=== PATIENT | male | born 1955 | race Caucasian/White ===

== ENCOUNTER → 2019-06-21 08:28 | Outpatient (BNVA) | payer MEDICARE, SELFPAY | PROVIDERS: Family Provider Family Medicine; PCP Family Medicine; Visit Provider Family Medicine | DX: I10 Essential (primary) hypertension (principal); E78.5 Hyperlipidemia, unspecified; E11.9 Type 2 diabetes mellitus without complications; Z12.5 Encounter for screening for malignant neoplasm of prostate | CPT/HCPCS: 80053; 80061; 83036; 84153; 85025 ==

== ENCOUNTER → 2019-07-05 10:53 | Outpatient (BNVA) | payer MEDICARE, SELFPAY | PROVIDERS: Family Provider Family Medicine; PCP Family Medicine; Visit Provider Family Medicine | DX: L72.3 Sebaceous cyst (principal) | CPT/HCPCS: 88304 ==

== ENCOUNTER → 2019-09-27 11:29 | Outpatient (BNVA) | payer MEDICARE, SELFPAY | PROVIDERS: Family Provider Family Medicine; PCP Family Medicine; Visit Provider Family Medicine | DX: R79.89 Other specified abnormal findings of blood chemistry (principal); E78.5 Hyperlipidemia, unspecified | CPT/HCPCS: 80053; 80061 ==

== ENCOUNTER 2019-12-19 09:33 | Outpatient (CLI) | payer MEDICARE, SELFPAY ==
[2019-12-19 10:11] LABS: Basophils % 0.2 %; Eosinophils # 0.1 10^3/uL (0.0-0.8); Hematocrit 45.6 % (42.0-52.0); Hemoglobin 14.8 g/dL (11.7-16.6); Lymphocytes # 2.1 10^3/uL (0.8-4.8); Lymphocytes % 22.6 %; Mean Corpuscular HGB Conc 32.5 g/dL (30.0-36.0); Mean Corpuscular Hemoglobin 29.4 pg (28.0-34.0); Mean Corpuscular Volume 90.5 fL (80-94); Mean Platelet Volume 12.4 fL (7.4-10.4); Monocytes # 0.6 10^3/uL (0.2-0.9); Monocytes % 6.6 %; Neutrophils # 6.27 10^3/uL (1.8-7.7); Neutrophils % 69.3 %; Nucleated Red Blood Cells % 0 %; Platelet Count 207 10^3/cmm (130-400); Red Blood Count 5.04 10^6/uL (4.1-5.3); Red Cell Distribution Width 12.1 % (12.1-15.1); White Blood Count 9.1 10^3/uL (4.0-10.0)
[2019-12-19 10:22] LABS: Albumin Level 4.8 g/dL (3.5-5.2); Anion Gap 13.9 (5-19); Blood Urea Nitrogen 25 mg/dL (8-23); Calcium 9.5 mg/dL (8.5-10.5); Carbon Dioxide 27 mmol/L (22-29); Chloride 101 mmol/L (98-107); Chol HDL Ratio 4.74 mg/dL (1.0-5.00); Cholesterol 180 mg/dL (0-200); Glomerular Filtration Rate 46.8 mL/min (90-130); Glucose 145 mg/dL (65-115); HDL Cholesterol 38 mg/dL (60-100); LDL Cholesterol Calculated 108 mg/dL (50-129); LDL HDL Ratio 2.84 RATIO (0.00-3.22); Phosphorus 2.1 mg/dL (2.5-4.5); Potassium 3.9 mmol/L (3.5-5.1); Sodium 138 mmol/L (136-145); Triglycerides 172 mg/dL (0-150)
[2019-12-19 10:40] LABS: Estmated Average Glucose 209; Hemoglobin A1C 8.9 % (4.0-6.0)
[2019-12-19 15:15] LABS: Creatinine Urine, Random 44 mg/dL (39-259); Microalbumin Random Urine 5 ug/dL (0-20)
[2019-12-19 15:21] LABS: Microalbum Creatinine Ratio Ur 114 mg/dL (0-20)
[2019-12-20 09:10] LABS: PROTEIN, TOTAL 7.3 g/dL (6.1-8.1)
[2019-12-20 13:00] LABS: ALBUMIN 4.2 g/dL (3.8-4.8); ALPHA 1 GLOBULIN 0.3 g/dL (0.2-0.3); ALPHA 2 GLOBULIN 0.8 g/dL (0.5-0.9); BETA 1 GLOBULIN 0.5 g/dL (0.4-0.6); BETA 2 GLOBULIN 0.5 g/dL (0.2-0.5)
[2019-12-20 15:00] LABS: KAPPA LIGHT CHAIN, FREE, SERUM 17.1 mg/L (3.3-19.4); LAMBDA LIGHT CHAIN, FREE, SERU 14.3 mg/L (5.7-26.3)
== END 2019-12-19 09:34 | disposition home or self-care (01) ==
LOC: LAB 09:37
PROVIDERS: Family Provider Family Medicine; PCP Family Medicine; Visit Provider Family Medicine
DX: E11.9 Type 2 diabetes mellitus without complications (principal); E78.5 Hyperlipidemia, unspecified
CPT/HCPCS: 80061; 80069; 82044; 83036; 83883; 84155; 84165; 85025

== ENCOUNTER 2020-01-02 13:59 | Outpatient (CLI) | payer MEDICARE, SELFPAY ==
--- NOTE | 2020-01-02 14:09 | US_ITS ---
WS: [id number] ULTRASOUND RENAL TECHNIQUE: Ultrasound examination of both kidneys. CLINICAL INFORMATION: CHRONIC KIDNEY DZ/STAGE III COMPARISON: None. FINDINGS: RIGHT: Right kidney is normal in size and appearance. Echogenicity: Normal. Cortical thickness: 1.8 cm; Normal. Hydronephrosis: None. Perinephric fluid: None. Right kidney measures: 11.9 cm x 5.5 cm x 4.8 cm. LEFT: Left kidney is normal in size and appearance. Echogenicity: Normal. Cortical thickness: 1.5 cm; Normal. Hydronephrosis: None. Perinephric fluid: None. Left kidney measures: 13.5 cm x 5.5 cm x 5.5 cm. Normal visualized aorta. US/US renal BI* [id number] IMPRESSION: Normal renal ultrasound
== END 2020-01-02 14:00 | disposition home or self-care (01) ==
LOC: RAD 14:04
PROVIDERS: PCP Family Medicine; Visit Provider Registered Nurse
DX: N18.3 Chronic kidney disease, stage 3 (moderate) (principal)
CPT/HCPCS: 76770

== ENCOUNTER 2020-03-11 11:17 | Outpatient (CLI) | payer MEDICARE, SELFPAY | END 2020-03-11 11:18 | disposition home or self-care (01) | LOC: LAB 11:22 | PROVIDERS: PCP Family Medicine; Visit Provider Registered Nurse | DX: N18.30 Chronic kidney disease, stage 3 unspecified (principal) | CPT/HCPCS: 36415; 85025 ==

== ENCOUNTER 2020-03-17 10:11 | Outpatient (CLI) | payer MEDICARE, SELFPAY ==
[2020-03-17 11:00] LABS: Basophils % 0.3 %; Eosinophils # 0.3 10^3/uL (0.0-0.8); Hematocrit 45.9 % (42.0-52.0); Hemoglobin 14.6 g/dL (11.7-16.6); Lymphocytes # 2.4 10^3/uL (0.8-4.8); Lymphocytes % 24.5 %; Mean Corpuscular HGB Conc 31.8 g/dL (30.0-36.0); Mean Corpuscular Hemoglobin 29.5 pg (28.0-34.0); Mean Corpuscular Volume 92.7 fL (80-94); Monocytes # 0.7 10^3/uL (0.2-0.9); Monocytes % 7.2 %; Neutrophils % 64.6 %; Nucleated Red Blood Cells % 0 %; Platelet Count 262 10^3/cmm (130-400); Red Blood Count 4.95 10^6/uL (4.1-5.3); Red Cell Distribution Width 12.3 % (12.1-15.1); White Blood Count 9.8 10^3/uL (4.0-10.0)
[2020-03-17 11:29] LABS: Urine Creatinine 32 mg/dL (39-259); Urine Protein Random 5 mg/dL
[2020-03-17 11:37] LABS: Calcium 9.8 mg/dL (8.5-10.5)
[2020-03-17 11:39] LABS: UPRO/UCREAT Ratio 0.16 mg/mg CR
[2020-03-17 11:47] LABS: 25 Hydroxy Vitamin D 13 ng/mL (30-100); Albumin Level 4.7 g/dL (3.5-5.2); Blood Urea Nitrogen 20 mg/dL (8-23); Calcium 9.5 mg/dL (8.5-10.5); Carbon Dioxide 28 mmol/L (22-29); Chloride 99 mmol/L (98-107); Glomerular Filtration Rate 50.7 mL/min (90-130); Glucose 108 mg/dL (65-115); Phosphorus 2.8 mg/dL (2.5-4.5); Sodium 137 mmol/L (136-145)
[2020-03-17 14:43] LABS: Uric Acid 4.5 mg/dL (3.4-7.0)
== END 2020-03-17 10:12 | disposition home or self-care (01) ==
LOC: LAB 10:15
PROVIDERS: PCP Family Medicine; Visit Provider Registered Nurse
DX: N18.30 Chronic kidney disease, stage 3 unspecified (principal)
CPT/HCPCS: 36415; 80069; 82306; 82310; 82570; 83970; 84156; 84550; 85025

== ENCOUNTER → 2020-03-18 13:29 | Outpatient (BNVA) | payer MEDICARE, SELFPAY | PROVIDERS: PCP Family Medicine; Visit Provider Family Medicine | DX: E11.9 Type 2 diabetes mellitus without complications (principal) | CPT/HCPCS: 83036 ==

== ENCOUNTER → 2020-06-10 09:10 | Outpatient (BNVA) | payer MEDICARE, SELFPAY | PROVIDERS: PCP Family Medicine; Visit Provider Family Medicine | DX: E78.5 Hyperlipidemia, unspecified (principal); E11.9 Type 2 diabetes mellitus without complications; R19.7 Diarrhea, unspecified | CPT/HCPCS: 80053; 80061; 83036 ==

== ENCOUNTER → 2020-10-10 08:56 | Outpatient (BNVA) | payer MEDICARE, SELFPAY | PROVIDERS: PCP Family Medicine; Visit Provider Family Medicine | DX: E78.5 Hyperlipidemia, unspecified (principal); E11.9 Type 2 diabetes mellitus without complications; I10 Essential (primary) hypertension; H61.23 Impacted cerumen, bilateral | CPT/HCPCS: 80053; 80061; 82043; 83036 ==

== ENCOUNTER 2021-01-06 15:42 | Outpatient (CLI) | payer MEDICARE, SELFPAY | END 2021-01-06 15:43 | disposition home or self-care (01) | LOC: SPT 15:43 | PROVIDERS: PCP Family Medicine; Visit Provider Orthopaedic Surgery | DX: Z46.89 Encounter for fitting and adjustment of other specified devices (principal); S52.591D Other fractures of lower end of right radius, subsequent encounter for closed fracture with routine healing; X58.XXXD Exposure to other specified factors, subsequent encounter | CPT/HCPCS: 97760; L3982 ==

== ENCOUNTER → 2021-01-12 14:17 | Outpatient (BNVA) | payer MEDICARE, SELFPAY | PROVIDERS: PCP Family Medicine; Visit Provider Nurse Practitioner Family | DX: Z20.822 Contact with and (suspected) exposure to COVID-19 (principal) | CPT/HCPCS: 87635 ==

== ENCOUNTER → 2021-01-20 08:13 | Outpatient (BNVA) | payer MEDICARE, SELFPAY | PROVIDERS: PCP Family Medicine; Visit Provider Orthopaedic Surgery | DX: S52.501A Unspecified fracture of the lower end of right radius, initial encounter for closed fracture (principal); V29.9XXA Motorcycle rider (driver) (passenger) injured in unspecified traffic accident, initial encounter | CPT/HCPCS: 73110 ==

== ENCOUNTER 2021-03-09 13:16 | Outpatient (CLI) | payer MEDICARE, SELFPAY ==
[2021-03-09 13:49] LABS: Basophils % 0.2 %; Eosinophils # 0.1 10^3/uL (0.0-0.8); Eosinophils % 1.1 %; Hematocrit 43.9 % (42.0-52.0); Hemoglobin 14.2 g/dL (11.7-16.6); Lymphocytes # 1.7 10^3/uL (0.8-4.8); Lymphocytes % 20.2 %; Mean Corpuscular HGB Conc 32.3 g/dL (30.0-36.0); Mean Corpuscular Hemoglobin 29.2 pg (28.0-34.0); Mean Corpuscular Volume 90.3 fl (80-94); Mean Platelet Volume 11.7 fL (7.4-10.4); Monocytes # 0.7 10^3/uL (0.2-0.9); Monocytes % 8.6 %; Neutrophils # 5.71 10^3/uL (1.8-7.7); Neutrophils % 69.5 %; Nucleated Red Blood Cells % 0 %; Platelet Count 212 10^3/cmm (130-400); Red Blood Count 4.86 10^6/uL (4.1-5.3); Red Cell Distribution Width 12.7 % (12.1-15.1); White Blood Count 8.2 10^3/uL (4.0-10.0)
[2021-03-09 14:25] LABS: Creatinine Urine, Random 97 mg/dL (39-259); Microalbumin Random Urine 8 ug/dL (0-20)
[2021-03-09 14:27] LABS: Calcium 9.2 mg/dL (8.5-10.5)
[2021-03-09 14:27] LABS: Microalbum Creatinine Ratio Ur 82 mg/dL (0-20)
[2021-03-09 14:28] LABS: Albumin Level 4.2 g/dL (3.5-5.2); Anion Gap 15.7 (5-19); Blood Urea Nitrogen 20 mg/dL (8-23); Calcium 9.3 mg/dL (8.5-10.5); Carbon Dioxide 26 mmol/L (22-29); Chloride 100 mmol/L (98-107); Glomerular Filtration Rate 55.1 mL/min (90-130); Glucose 153 mg/dL (65-115); Phosphorus 2.8 mg/dL (2.5-4.5); Potassium 3.7 mmol/L (3.5-5.1); Sodium 138 mmol/L (136-145)
[2021-03-09 14:35] LABS: Parathyroid Hormone 24.5 pg/mL (15-65)
[2021-03-09 14:45] LABS: 25 Hydroxy Vitamin D 30 ng/mL (30-100)
== END 2021-03-09 13:17 | disposition home or self-care (01) ==
PROVIDERS: PCP Family Medicine; Visit Provider Registered Nurse
DX: N18.31 Chronic kidney disease, stage 3a (principal)
CPT/HCPCS: 36415; 80069; 82044; 82306; 82310; 83970; 85025

== ENCOUNTER → 2021-04-10 08:21 | Outpatient (BNVA) | payer MEDICARE, SELFPAY | PROVIDERS: PCP Family Medicine; Visit Provider Family Medicine | DX: E11.9 Type 2 diabetes mellitus without complications (principal) | CPT/HCPCS: 83036 ==

== ENCOUNTER → 2021-09-15 11:20 | Outpatient (BNVA) | payer MEDICARE, SELFPAY | PROVIDERS: PCP Family Medicine; Visit Provider Family Medicine Adult Medicine | DX: E11.9 Type 2 diabetes mellitus without complications (principal); I10 Essential (primary) hypertension; E78.5 Hyperlipidemia, unspecified; Z13.6 Encounter for screening for cardiovascular disorders | CPT/HCPCS: 80053; 80061; 83036 ==

== ENCOUNTER 2022-01-20 08:51 | Outpatient (CLI) | payer MEDICARE, SELFPAY ==
--- NOTE | 2022-01-20 09:05 | XR_ITS ---
WS: [id number] Exam: XR cervical spine 3V* [id number] Date/Time of Exam: 01/20/2022 9:05 AM Reason For Exam: M54.12 - Radiculopathy, cervical region No fracture or dislocation. Disc spaces are relatively well maintained. Slight spondylosis. The odont oid is intact. Normal paraspinal soft tissues. Right carotid calcifications. XR/XR cervical spine 3V* [id number] IMPRESSION: 1. No fracture or malalignment identified.
== END 2022-01-20 08:52 | disposition home or self-care (01) ==
PROVIDERS: PCP Family Medicine; Visit Provider Emergency Medicine
DX: M54.12 Radiculopathy, cervical region (principal)
CPT/HCPCS: 72040

== ENCOUNTER → 2022-02-04 15:07 | Outpatient (BNVA) | payer MEDICARE, SELFPAY | PROVIDERS: PCP Family Medicine; Visit Provider Family Medicine | DX: M54.12 Radiculopathy, cervical region (principal); R30.0 Dysuria; E11.9 Type 2 diabetes mellitus without complications | CPT/HCPCS: 81000 ==

== ENCOUNTER 2022-02-15 06:00 | Outpatient (RCR) | payer MEDICARE, SELFPAY | END 2022-02-19 23:59 | disposition home or self-care (01) | LOC: MPT 06:00 | PROVIDERS: PCP Family Medicine; Visit Provider Family Medicine | DX: M54.12 Radiculopathy, cervical region (principal) | CPT/HCPCS: 97110; 97140; 97162 ==

== ENCOUNTER 2022-02-20 06:00 | Outpatient (RCR) | payer MEDICARE, SELFPAY | END 2022-03-22 23:59 | disposition home or self-care (01) | LOC: MPT 06:00 | PROVIDERS: PCP Family Medicine; Visit Provider Family Medicine | DX: M54.12 Radiculopathy, cervical region (principal) | CPT/HCPCS: 97110; 97140; G0283 ==

== ENCOUNTER → 2022-03-04 09:33 | Outpatient (BNVA) | payer MEDICARE, SELFPAY | PROVIDERS: PCP Family Medicine; Visit Provider Family Medicine | DX: I10 Essential (primary) hypertension (principal); E78.5 Hyperlipidemia, unspecified; E11.9 Type 2 diabetes mellitus without complications; Z23 Encounter for immunization | CPT/HCPCS: 80053; 80061; 82043; 83036; 85025 ==

== ENCOUNTER → 2022-03-11 10:06 | Outpatient (BNVA) | payer MEDICARE, SELFPAY | PROVIDERS: PCP Family Medicine; Visit Provider Internal Medicine Nephrology | DX: N18.31 Chronic kidney disease, stage 3a (principal) | CPT/HCPCS: 80069; 82043; 82310; 82652; 83970; 85025 ==

== ENCOUNTER 2022-04-09 09:44 | Outpatient (CLI) | payer MEDICARE, SELFPAY ==
--- NOTE | 2022-04-09 10:15 | MR_ITS ---
WS: [id number] MRI CERVICAL SPINE NONCONTRAST HISTORY: chronic cervical radiculopathy COMPARISON: None available. Technique: Multiplanar, multisequence noncontrast imaging of the cervical spine. Normal cervical alignment with no compression fracture or significant disc space narrowing. Mild diff use disc space desiccation. Signal within the cervical cord is normal. Visualized posterior fossa is unremarkable. Craniocervical junction, C1 and C2 relationship, odontoid process and soft tissues are normal. C2-C3: Normal. C3-C4: Normal. C4-C5: Very mild osteophytic ridging and facet joint arthritis. Mild bilateral foraminal narrowing pr edominantly due to osteophyte disease. C5-C6: Mild annular disc bulging and mild osteophytosis. Mild LEFT foraminal narrowing due to osteoph yte disease. Mild facet joint arthritis. C6-C7: Mild annular disc bulge with a central disc protrusion. Small LEFT disc osteophyte complex. Mi ld to moderate LEFT foraminal stenosis and mild on the RIGHT. Mild facet arthritis. C7-T1: Normal. Paraspinal soft tissue are normal. MR/MR cervical spin wo con* [id number] IMPRESSION: 1. No high-grade central or foraminal stenosis. 2. Mild to moderate LEFT foraminal stenosis at C6-7 due to disc osteophyte dis ease. 3. Additional small central disc protrusion at C6-7 and mild RIGHT foraminal s tenosis. 4. Mild bilateral foraminal stenosis at C4-5 due to osteophyte disease. 5. Mild LEFT foraminal stenosis at C5-6.
== END 2022-04-09 09:45 | disposition home or self-care (01) ==
PROVIDERS: PCP Family Medicine; Visit Provider Family Medicine
DX: M54.12 Radiculopathy, cervical region (principal); M48.02 Spinal stenosis, cervical region; M25.78 Osteophyte, vertebrae; M50.223 Other cervical disc displacement at C6-C7 level
CPT/HCPCS: 72141

== ENCOUNTER → 2022-06-01 08:47 | Outpatient (BNVA) | payer MEDICARE, SELFPAY | PROVIDERS: PCP Family Medicine; Visit Provider Family Medicine | DX: E11.9 Type 2 diabetes mellitus without complications (principal); E78.5 Hyperlipidemia, unspecified | CPT/HCPCS: 80053; 80061; 83036 ==

== ENCOUNTER → 2022-06-24 11:04 | Outpatient (BNVA) | payer MEDICARE, SELFPAY | PROVIDERS: PCP Family Medicine; Visit Provider Anesthesiology Pain Medicine | DX: M54.2 Cervicalgia (principal); M79.602 Pain in left arm | CPT/HCPCS: 99204 ==

== ENCOUNTER → 2022-08-24 10:44 | Outpatient (BNVA) | payer MEDICARE, SELFPAY | PROVIDERS: PCP Family Medicine; Visit Provider Family Medicine | DX: E11.22 Type 2 diabetes mellitus with diabetic chronic kidney disease (principal); N18.31 Chronic kidney disease, stage 3a; Z79.4 Long term (current) use of insulin | CPT/HCPCS: 80048; 83036 ==

== ENCOUNTER → 2022-12-09 13:17 | Outpatient (BNVA) | payer MEDICARE, SELFPAY | PROVIDERS: PCP Family Medicine; Visit Provider Family Medicine | DX: E11.22 Type 2 diabetes mellitus with diabetic chronic kidney disease (principal); N18.31 Chronic kidney disease, stage 3a; Z79.4 Long term (current) use of insulin | CPT/HCPCS: 80053; 83036 ==

== ENCOUNTER → 2023-03-01 11:16 | Outpatient (BNVA) | payer MEDICARE, SELFPAY | PROVIDERS: PCP Family Medicine; Visit Provider Family Medicine | DX: E11.22 Type 2 diabetes mellitus with diabetic chronic kidney disease (principal); N18.30 Chronic kidney disease, stage 3 unspecified; R30.0 Dysuria | CPT/HCPCS: 80069; 82043; 82306; 82542; 85025 ==

== ENCOUNTER → 2023-03-07 09:41 | Outpatient (BNVA) | payer MEDICARE, SELFPAY | PROVIDERS: PCP Family Medicine; Visit Provider Family Medicine | DX: E11.22 Type 2 diabetes mellitus with diabetic chronic kidney disease (principal); N18.31 Chronic kidney disease, stage 3a; Z79.4 Long term (current) use of insulin; Z12.5 Encounter for screening for malignant neoplasm of prostate; N18.30 Chronic kidney disease, stage 3 unspecified | CPT/HCPCS: 82310; 83036; 83970; G0103 ==

== ENCOUNTER → 2023-06-21 09:13 | Outpatient (BNVA) | payer MEDICARE, SELFPAY | PROVIDERS: PCP Family Medicine; Visit Provider Family Medicine | DX: E11.22 Type 2 diabetes mellitus with diabetic chronic kidney disease (principal); N18.31 Chronic kidney disease, stage 3a; Z79.4 Long term (current) use of insulin; I10 Essential (primary) hypertension; M10.9 Gout, unspecified; K21.9 Gastro-esophageal reflux disease without esophagitis | CPT/HCPCS: 80053; 80061; 83036 ==

== ENCOUNTER → 2023-08-18 09:34 | Outpatient (BNVA) | payer MEDICARE, SELFPAY | PROVIDERS: PCP Family Medicine; Referring Provider Family Medicine; Visit Provider Dermatology | DX: L82.0 Inflamed seborrheic keratosis (principal); L72.0 Epidermal cyst; L57.0 Actinic keratosis; L82.1 Other seborrheic keratosis; L91.8 Other hypertrophic disorders of the skin; L73.8 Other specified follicular disorders; D36.12 Benign neoplasm of peripheral nerves and autonomic nervous system, upper limb, including shoulder | CPT/HCPCS: 17000; 17110; 99203 ==

== ENCOUNTER → 2023-09-07 09:30 | Outpatient (BNVA) | payer MEDICARE, SELFPAY | PROVIDERS: PCP Family Medicine; Visit Provider Dermatology | DX: D48.5 Neoplasm of uncertain behavior of skin (principal) | CPT/HCPCS: 11403; 13101 ==

== ENCOUNTER → 2023-09-22 08:21 | Outpatient (BNVA) | payer MEDICARE, SELFPAY | PROVIDERS: PCP Family Medicine; Visit Provider Family Medicine | DX: E11.9 Type 2 diabetes mellitus without complications (principal); Z79.4 Long term (current) use of insulin; Z13.6 Encounter for screening for cardiovascular disorders | CPT/HCPCS: 80053; 83036 ==

== ENCOUNTER → 2023-12-29 08:20 | Outpatient (BNVA) | payer MEDICARE, SELFPAY | PROVIDERS: PCP Family Medicine; Visit Provider Family Medicine Adult Medicine | DX: Z79.4 Long term (current) use of insulin (principal); E11.22 Type 2 diabetes mellitus with diabetic chronic kidney disease; N18.31 Chronic kidney disease, stage 3a; I10 Essential (primary) hypertension; E78.5 Hyperlipidemia, unspecified | CPT/HCPCS: 80053; 80061; 84443; 85025 ==

== ENCOUNTER → 2024-01-12 13:06 | Outpatient (BNVA) | payer MEDICARE, SELFPAY | PROVIDERS: PCP Family Medicine; Visit Provider Orthopaedic Surgery | DX: M54.12 Radiculopathy, cervical region (principal); M54.2 Cervicalgia | CPT/HCPCS: 72050; 99204 ==

== ENCOUNTER → 2024-03-29 08:39 | Outpatient (BNVA) | payer MEDICARE, SELFPAY | PROVIDERS: PCP Family Medicine; Visit Provider Nurse Practitioner Family | DX: L57.0 Actinic keratosis (principal); L91.8 Other hypertrophic disorders of the skin; L82.1 Other seborrheic keratosis; D36.12 Benign neoplasm of peripheral nerves and autonomic nervous system, upper limb, including shoulder; L73.8 Other specified follicular disorders | CPT/HCPCS: 17000; 17110; 99213 ==

== ENCOUNTER → 2024-04-03 11:00 | Outpatient (BNVA) | payer MEDICARE, SELFPAY | PROVIDERS: PCP Family Medicine Adult Medicine | DX: E03.9 Hypothyroidism, unspecified; E11.22 Type 2 diabetes mellitus with diabetic chronic kidney disease; N18.30 Chronic kidney disease, stage 3 unspecified; Z79.4 Long term (current) use of insulin; E78.5 Hyperlipidemia, unspecified; K21.9 Gastro-esophageal reflux disease without esophagitis; I10 Essential (primary) hypertension; M1A.0790 Idiopathic chronic gout, unspecified ankle and foot, without tophus (tophi); M54.12 Radiculopathy, cervical region | CPT/HCPCS: 80053; 80061; 83036; 84443 ==

== ENCOUNTER → 2024-08-23 08:57 | Outpatient (BNVA) | payer MEDICARE, SELFPAY | PROVIDERS: PCP Family Medicine; Visit Provider Family Medicine | DX: E11.22 Type 2 diabetes mellitus with diabetic chronic kidney disease (principal); N18.30 Chronic kidney disease, stage 3 unspecified; Z79.4 Long term (current) use of insulin; E78.5 Hyperlipidemia, unspecified; E03.9 Hypothyroidism, unspecified; N40.0 Benign prostatic hyperplasia without lower urinary tract symptoms; E55.9 Vitamin D deficiency, unspecified; M54.12 Radiculopathy, cervical region; R60.0 Localized edema; I10 Essential (primary) hypertension; E66.01 Morbid (severe) obesity due to excess calories; Z68.42 Body mass index [BMI] 45.0-49.9, adult; K21.9 Gastro-esophageal reflux disease without esophagitis; N18.31 Chronic kidney disease, stage 3a; M1A.0790 Idiopathic chronic gout, unspecified ankle and foot, without tophus (tophi); G47.33 Obstructive sleep apnea (adult) (pediatric); Z12.5 Encounter for screening for malignant neoplasm of prostate; H61.20 Impacted cerumen, unspecified ear | CPT/HCPCS: 80053; 80061; 82306; 83036; 84153; 84439; 84443; 85025 ==

== ENCOUNTER 2024-11-18 08:25 | Inpatient (IN) | payer MEDICARE, SELFPAY ==
[2024-11-18] VITALS (10 sets, daily range): BP systolic 97–161; BP diastolic 60–89; PULSE 80–113; RESP 10–19; TEMP 37.2–38.6; O2SAT 90–98; BMI 43.2; BMI 43.4
--- OUTSIDE RECORDS SUMMARY | 2024-11-18 08:31 | XMS_ITS | Encounter Summary ---
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 No monoclonal gammopathy detected. Interpreted by: Taj Silva., Ph.D. PROTEIN TOTAL, SPE 7.10 6.10 - 7.80 g/dL INTERFACE SYSTEM ALBUMIN SPE 4.20 3.50 - 5.30 g/dL INTERFACE SYSTEM ALPHA 1 GLOBULIN SPE .24 0.11 - 0.31 INTERFACE SYSTEM ALPHA 2 GLOBULIN SPE 1.19(H) 0.58 - 1.16 g/dL INTERFACE SYSTEM BETA GLOBULIN .60 0.59 - 0.88 g/dL INTERFACE SYSTEM GAMMA GLOBULIN .89 0.50 - 1.35 g/dL INTERFACE SYSTEM ALBUMIN %, 59.2 57.4 - 65.5 % INTERFACE SYSTEM % ALPHA 1 GLOBULIN 3.4 1.8 - 3.8 % INTERFACE SYSTEM % ALPHA 2 GLOBULIN 16.8(H) 9.5 - 14.3 % INTERFACE SYSTEM % Beta Globulin 8.5(L) 9.1 - 10.9 % INTERFACE SYSTEM % GAMMA GLOBULIN 12.5 8.2 - 16.7 % INTERFACE SYSTEM ALBUMIN/GLOBULIN RATIO 1.45 g/dL INTERFACE SYSTEM 04/18/2006 12:1 6 PM CONDUIT REAMER OPERATOR us Attila Coronado MD CHEMISTRY ORDERABLES Final R esult INTERFACE SYSTEM Refer to clinic/hospital department documented in this encounter Visit Diagnoses Not on filedocumented in this encounter Care Teams Burglar Alarm Superintendent Relationship Specialty Start Date End Date Samaria Wallace DO PCP - General Family Practice 02/15/19 documented as of this encounter
--- OUTSIDE RECORDS SUMMARY | 2024-11-18 08:31 | XMS_ITS | Clinical Summary ---
Author Organization [facility] [place] Address [address] [address] Care Team Providers Care Examination Scorer Name Role Phone Samaria Wallace Primary Care Provider +1- [phone] Allergies No known active allergies Medications DOXYCYCLINE MONOHYDRATE 100 mg Oral Cap Take 100 mg by mouth every 12 hours. Active CHLORTHALIDONE 25 mg Oral Tab Take 25 mg by mouth daily. Active OMEPRAZOLE 20 mg Oral CpDR Take 20 mg by mouth daily. Active LIPITOR 20 mg Oral Tab Take 20 mg by mouth daily. Active BENICAR 40 mg Oral Tab Take 40 mg by mouth daily. Active cefdinir (OMNICEF) 300 mg Oral CapIndications:Ce llulitis and abscess of foot, except toes Take 1 Cap by mouth every 12 hours. 20 Cap 0 04/01/2008 Active indomethacin (INDOCIN) 50 mg Oral CapIndications:Ce llulitis and abscess of foot, except toes Take 1 Cap by mouth 3 times daily. 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 CLERK Gender Identity Not on file Sexual Orientation Not on file Last Filed Vital Signs Vital Sign Reading Time Taken Comments Blood Pressure 130/76 04/01/2008 11:07 AM SERVICE CLERK Pulse 84 03/29/2008 2:56 PM SERVICE CLERK Temperature 36.4 C (97.6 F) 04/01/2008 11:07 AM SERVICE CLERK Respiratory Rate 24 03/29/2008 2:56 PM SERVICE CLERK Oxygen Saturation - - Inhaled Oxygen Concentration - - Weight 101 kg (222 lb 9.6 oz) 04/04/2008 9:20 AM SERVICE CLERK Height 167.6 cm (5' 6 ) 04/04/2008 9:20 AM SERVICE CLERK Body Mass Index 35.93 04/04/2008 9:20 AM SERVICE CLERK Plan of Treatment Health Maintenance Due Date Last Done Comments DTAP/TDAP/TD VACCINES (1 - Tdap) 1972 COLORECTAL SCREENING 1998 Colorectal Cancer Screening 1998 FIT-DNA Q 3 years 1998 FIT/FOBT Q 1 year 1998 Flex Sig/CT Colonography Q 5 years 1998 PNEUMOCOCCAL VACCINE 50+ YEARS (1 of 1 - PCV) 05/05/20 03 ZOSTER VACCINE (1 of 2) 2003 INFLUENZA VACCINE (#1) 2023 RSV VACCINE (60+ or ) (1 - 1-dose 75+ series) 2028 Insurance PREFERRED [employer] [id number] HMO Care Teams Examination Scorer Relationship Specialty Start Date End Date Samaria Wallace DO PCP - General Family Practice 02/15/19
--- OUTSIDE RECORDS SUMMARY | 2024-11-18 08:31 | XMS_ITS | Clinical Summary ---
Author Organization [facility] Address [address] Ibanez: Epic Prelude ADT [place] [address] Care Team Providers Care Credit Balance Specialist Name Role Phone Samaria Wallace Primary Care Provider +1- [phone] Allergies No known active allergies Encounters Date Type Department Care Team Description 11/06/2024 External Device Data STL ABSTRACTION Provider, Abstract 11/01/2024 Telephone [facility] [place] [address] [place] [address] Provider, Abstract Medical Records (Requested A1C lab results from external provider for continuity of care/insurance quality measures- need results uploaded and resulted in chart.) 10/11/2024 External Device Data STL ABSTRACTION Provider, Abstract 10/11/2024 External Device Data [facility] ABSTRACTION Provider, Abstract 10/10/2024 External Device Data ST[facility] ABSTRACTION Provider, Abstract 10/10/2024 External Device Data ST[facility] ABSTRACTION Provider, Abstract 10/09/2024 External Device Data ST[facility] ABSTRACTION Provider, Abstract 09/04/2024 External Device Data STL ABSTRACTION Provider, Abstract from Last 3 Months Family History Medical History Relation Name Comments Lung Cancer Paternal Grandfather Relation Name Status Comments Paternal Grandfather Social History Tobacco Use Types Packs/Day Years Used Date Smoking Tobacco: Never Alcohol Use Standard Drinks/Week Comments Yes 5.8 (1 standard drink = 0.6 oz p ure alcohol) Sex and Gender Information Value Date Recorded Sex Assigned at Not on file 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 Gender Identity Not on file Sexual Orientation Not on file Plan of Treatment Health Maintenance Due Date Last Done Comments DIABETES ANNUAL FOOT EXAM 1971 DIABETES ANNUAL RETINAL EXAM 1971 DIABETES MICROALBUMIN ANNUAL SCREEN 1971 LDL CHOLESTEROL ANNUAL 1971 DTAP/TDAP/TD VACCINES (1 - Tdap) 1972 PNEUMOCOCCAL VACCINE 50+ YEARS (1 of 2 - PCV) 05/05/19 72 COLORECTAL SCREENING 1998 Colorectal Cancer Screening 1998 FIT-DNA Q 3 years 1998 FIT/FOBT Q 1 year 1998 Flex Sig/CT Colonography Q 5 years 1998 ZOSTER VACCINE (1 of 2) 2003 RSV VACCINE (60+ or ) (1 - Risk 60-74 years 1-dose series) 2013 INFLUENZA VACCINE (#1) 2023 DIABETES HBA1C Q 6 MONTHS 10/01/2024 04/03/2024 Procedures Procedure Name Priority Date/Time Associated Diagnosis Comments HEMOGLOBIN A1C Routine 04/03/2024 from Last 3 Months or Most Recently Relevant to Health Maintenance Results * (ABNORMAL) HEMOGLOBIN A1C (04/03/2024) ABSTRACTED HGB A1C 7.5 % Blood us Abstract Provider CHEMISTRY ORDERABLES Edited Re sult - Final from Last 3 Months or Most Recently Relevant to Health Maintenance Care Teams Credit Balance Specialist Relationship Specialty Start Date End Date Samaria Wallace DO PCP - General Family Practice 02/15/19
--- OUTSIDE RECORDS SUMMARY | 2024-11-18 08:31 | XMS_ITS | Encounter Summary ---
Author Organization [facility] Address [address] [place] [address] Care Team Providers Care Gas Mask Inspector Name Role Phone Samaria Wallace DO Primary Care Provider +1- [phone] Encounter Details Date Type Department Care Team (Latest Contact Info) Description 04/25/2006 Outpatient Historical [facility] [place] [address] [place] [phone] Attila Coronado MD [address] [place] [address] Hypercalcemia (Primary Dx); Unspecified Essential Hypertension Social History Tobacco Use Types Packs/Day Years Used Date Smoking Tobacco: Never Assessed Sex and Gender Information Value Date Recorded Sex Assigned at Not on file Legal Sex Male 5:[address] Gender Identity Not on file Sexual Orientation Not on file documented as of this encounter Plan of Treatment Not on file documented as of this encounter Visit Diagnoses Diagnosis Hypercalcemia- Primary Unspecified essential hypertension documented in this encounter Care Teams Gas Mask Inspector Relationship Specialty Start Date End Date Samaria Wallace DO PCP - General Family Practice 02/15/19 documented as of this encounter
--- NOTE | 2024-11-18 08:54 | CTR_ITS ---
PROCEDURE INFORMATION: Exam: CT Abdomen And Pelvis With Contrast Exam date and time: 11/18/2024 10:14 AM Age: 69 years old Clinical indication: Other: Dysuria; Abdominal pain; Localized; Left lower quadrant (llq); Additional info: Llq pain TECHNIQUE: Imaging protocol: Computed tomography of the abdomen and pelvis with contrast. Total images: 3 Radiation optimization: All CT scans at this facility use at least one of these dose optimization techniques: automated exposure control; mA and/or kV adjustment per patient size (includes targeted exams where dose is matched to clinical indication); or iterative reconstruction. Contrast material: OMNIPAQUE 350; Contrast volume: 100 ml; Contrast route: INTRAVENOUS (IV); COMPARISON: CR XR hip LT 2-3V wo/w pel* [id number] 05/02/2019 12:47 PM RADIATION DOSE METRICS: Total DLP (mGy-cm): 1371.89 FINDINGS: Lungs: Mild dependent atelectasis. Liver: Normal. No mass. Gallbladder and biliary ducts: Normal. No calcified stones. No ductal dilation. Pancreas: Normal. No ductal dilation. Spleen: Normal. No splenomegaly. Adrenal glands: Normal. No mass. Kidneys and ureters: No renal, ureteral, nor bladder calculi detected. Right-sided renal cortical scarring is noted. 2 cm incidental right renal cyst, requiring no further evaluation. Stomach and bowel: Colonic diverticulosis is present without diverticulitis. Appendix: No evidence of appendicitis. Intraperitoneal space: Unremarkable. No free air. No significant fluid collection. Vasculature: Unremarkable. No abdominal aortic aneurysm. Lymph nodes: Unremarkable. No enlarged lymph nodes. Urinary bladder: A Virk catheter within collapsed urinary bladder. Reproductive: Unremarkable as visualized. Bones/joints: Unremarkable. No acute fracture. Soft tissues: There is a fat containing left inguinal hernia. CT/CT abdomen pelvis w con* [id number] IMPRESSION: 1. No renal, ureteral, nor bladder calculi detected. 2. A Virk catheter within collapsed urinary bladder. 3. Colonic diverticulosis is present without diverticulitis.
--- NOTE | 2024-11-18 09:08 | ED_ITS ---
HPI - Male Genitourinary 2 General: Chief complaint: Urogenital-Male Stated complaint: Fever / urinary Time Seen by Provider: 11/18/24 08:30 Source: patient Mode of arrival: ambulatory Limitations: no limitations History of Present Illness: 69-year-old male states that he has had a fever along with a hard time urinating since yesterday. He states that he felt like he had gotten too hot due to the heat and has been feeling weak as well. He states he is really only able to dribble is having some lower abdominal pain he denies any vomiting or diarrhea. Associated symptoms: Reports dysuria; Deny nausea or vomiting Related Data Home Medications ?Medication ?Instructions ?Recorded ?Confirmed potassium chloride PO 06/24/22 11/16/24 Previous Rx's ?Medication ?Instructions ?Recorded albuterol sulfate 90 mcg/actuation 2 puff inhalation Q 6H PRN 09/02/22 aerosol inhaler shortness of breath or wheez ing #8.5 grams Freestyle Jami III [place] #1 ea 03/07/23 blood-glucose sensor (FreeStyle #1 ea 03/07/23 Jami 3 Sensor device) pen needles #100 ea 02/22/24 lancets 33 gauge (TRUEplus Lancets) #100 ea 02/27/24 omeprazole 20 mg capsule,delayed 20 mg PO QDAY #90 cap s 04/03/24 release Test Strips #1 ea 04/18/24 allopurinol 300 mg tablet 150 mg (1/2 x 300 mg) PO HAYDEN LY #45 05/29/24 tabs amlodipine 10 mg tablet 10 mg PO DAILY #90 tabs 0 12/14 losartan 100 1 tab PO DAILY #90 tabs 0 12/14 mg-hydrochlorothiazide 25 mg tablet rosuvastatin 40 mg tablet 40 mg PO DAILY #90 tabs 0 12/14 carbamide peroxide 6.5 % ear drops 5 drp otic (ear) Q1 2H 7 days #15 mL 08/23/24 (Debrox) celecoxib 200 mg capsule 200 mg PO BID PRN pain #60 c aps 08/23/24 gabapentin 100 mg capsule 100 mg PO TID #90 caps 08/23 cholecalciferol (vitamin D3) 1,250 50,000 unit PO .qwe ekly 12 weeks 08/24/24 mcg (50,000 unit) capsule #12 caps torsemide 20 mg tablet 40 mg (2 x 20 mg) PO DAILY # 10 tabs 09/05/24 fenofibrate nanocrystallized 145 145 mg PO QDAY 90 day s #90 tabs 09/12/24 mg tablet (Tricor) insulin glargine 100 unit/mL (3 30 unit (0.3 mL) SUBCU T BID #15 mL 11/16/24 mL) subcutaneous pen (Lantus Solostar U-100 Insulin) semaglutide 0.25 mg or 0.5 mg (2 1 mg (1.472 mL) SUBCU T .qweekly 3 11/16/24 mg/3 mL) subcutaneous pen injector months #3 mL (Ozempic) tramadol 50 mg tablet 50 mg PO Q12H PRN pain 30 da ys #30 11/16/24 tabs Allergies Allergy/AdvReac Type Severity Reaction Status Date / Time No Known Allergies Allergy Verified 11/16/24 13:38 Review of Systems 2 Const: Reports: fever(s); Denies: chills, body aches or change in appetite Eyes: Denies: blurry vision or eye discomfort ENMT: Denies: throat pain or dental pain Card: Denies: chest pain Resp: Denies: dyspnea GI: Reports: abdominal pain; Denies: nausea, vomiting or diarrhea : Reports: difficulty urinating and dysuria Musc: Denies: neck pain or back pain Skin/Breast: Denies: rash Neuro: Denies: headache(s) PFSH ED 2 PFSH: Medical History Adult BMI 40.0-44.9 kg/sq m Hypovitaminosis D Morbid obesity with BMI of 45.0-49.9, adult Hypothyroidism (acquired) 12/29/2023 TSH 5.3 Left anterior shoulder pain Closed fracture of right distal radius GERD (gastroesophageal reflux disease) JESSICA (obstructive sleep apnea) Benign essential HTN Dyslipidemia Gout Surgical History No pertinent past surgical history Family History Other Cancer Stroke Social History Smoking and tobacco/nicotine status: never used tobacco/nicotine Quit status (tobacco/nicotine): has quit using Second hand smoke exposure: No Alcohol intake: current Alcohol intake frequency: holidays/special occasions only Alcohol type: beer, wine and hard liquor Substance/Drug Use: never Physical Exam 2 Const: COMMON NORMALS: patient oriented x3 HENMT: COMMON NORMALS: normocephalic and atraumatic HEAD & SCALP: n ormocephalic and atraumatic Eye: COMMON NORMALS: conjunctivae normal CONJUNCTIVA: Yes conjunctivae normal Neck/C-Spine: COMMON NORMALS: full ROM and supple Chest: COMMONS NORMALS: normal inspection of the chest Resp: COMMON NORMALS: normal respiratory effort, No retractions, No use of accessory muscles and clear to auscultation bilaterally AUSCULTATION: clear to auscultation bilaterally Cardio: COMMON NORMALS: regular rate, regular rhythm and No murmurs present (Cardio) RATE: regular rate RHYTHM: regular rhythm GI: COMMON NORMALS: Normal to inspection, nondistended, normoactive bowel sounds present, Soft to palpation and no masses PALPATION: Yes Soft to palpation OTHER: Left lower quadrant tenderness Extremity: COMMON NORMALS: normal to inspection and full ROM Neuro: COMMON NORMALS: patient oriented x3, moves all extremities and no focal motor deficits Psych: COMMON NORMALS: mental status grossly normal, Normal thought process present and cooperative THOUGHT PROCESS: Normal thought process present Skin: COMMON NORMALS: no rashes or lesions noted and no wounds GENERAL SKIN EXAM: no rashes or lesions noted Course 2 Vital Signs: Vital signs: Vital Signs Temperature 99.2 F 11/18/24 11:09 Pulse Rate 104 H 11/18/24 12:34 Respiratory Rate 16 11/18/24 12:34 Blood Pressure 161/89 11/18/24 12:34 Pulse Oximetry 98 11/18/24 12:34 Oxygen Delivery Me thod Room Air 11/18/24 12:34 Oxygen Flow Rate 2 11/18/24 11:09 MDM - Male Medical Decision Making Patient presents here with UTI does have an elevated white count lactate here is normal is given blood cultures did give him sepsis fluid bolus at his ideal body weight. Will admit at this time. Medical Records I reviewed the patient's medical records. Lab Data I reviewed the patient's lab results. 11/18/24 09:22 11/18/24 09:22 Radiology Impressions Abdomen/Pelvis CT 11/18/24 08:54 IMPRESSION: 1. No renal, ureteral, nor bladder calculi detected. 2. A Virk catheter within collapsed urinary bladder. 3. Colonic diverticulosis is present without diverticulitis. Chest X-Ray 11/18/24 10:38 IMPRESSION: No acute findings. Laboratory Results WBC 18.77 10^3/uL (3.29-11.43) H 11/18/24 09:22 RBC 5.08 10^6/uL (3.85-5.65) 11/18/24 09:22 Hgb 15.10 g/dL (11.27-16.99) 11/18/24 09:22 Hct 44.6 % (37-53) 11/18/24 09:22 MCV 87.8 fl (82-101) 11/18/24 09:22 MCH 29.7 pg (27-33) 11/18/24 09:22 MCHC 33.9 g/dL (30-55) 11/18/24 09:22 RDW 12.5 % (12.1-15.1) 11/18/24 09:22 Plt Count 222 10^3/cmm (157-399) 11/18/24 09:22 MPV 13.1 fL (7.4-10.4) H 11/18/24 09:22 Neut % (Auto) 86.7 % 11/18/24 09:22 Lymph % (Auto) 5.7 % 11/18/24 09:22 [place] % (Auto) 7.1 % 11/18/24 09:22 Eos % (Auto) 0.0 % 11/18/24 09:22 Baso % (Auto) 0.1 % 11/18/24 09:22 Neut # (Auto) 16.27 10^3/uL (1.8-7.7) H 11/18/24 09:22 Lymph # (Auto) 1.1 10^3/uL (0.8-4.8) 11/18/24 09:22 [place] # (Auto) 1.3 10^3/uL (0.2-0.9) H 11/18/24 09:22 Eos # (Auto) 0.0 10^3/uL (0.0-0.8) 11/18/24 09:22 Baso # (Auto) 0.0 10^3/uL (0.0-0.1) 11/18/24 09:22 Nucleated RBC % (auto) 0 % 11/18/24 09:22 Nucleated RBCs # 0.0 /100WBC 11/18/24 09:22 Sodium 135 mmol/L (136-145) L 11/18/24 09:22 Potassium 3.5 mmol/L (3.5-5.1) 11/18/24 09:22 Chloride 95 mmol/L (98-107) L 11/18/24 09:22 Carbon Dioxide 25 mmol/L (22-29) 11/18/24 09:22 Anion Gap 18.5 (5-19) 11/18/24 09:22 BUN 15 mg/dL (8-23) 11/18/24 09:22 Creatinine 1.4 mg/dL (0.7-1.2) H 11/18/24 09:22 GFR Calculation Not Reportable 11/18/24 09:22 Glucose 145 mg/dL (65-115) H 11/18/24 09:22 Calculated Osmolality 283 mOsm/kg (285-295) L 11/18/24 09:22 Lactic Acid 1.2 mmol/L (0.5-2.2) 11/18/24 10:29 Calcium 9.9 mg/dL (8.5-10.5) 11/18/24 09:22 Total Bilirubin 1.0 mg/dL (0.15-1.2) 11/18/24 09:22 AST 16 U/L (0-40) 11/18/24 09:22 ALT 28 U/L (0-41) 11/18/24 09:22 Alkaline Phosphatase 51 U/L (40-130) 11/18/24 09:22 Total Protein 8.1 g/dL (6.6-8.7) 11/18/24 09:22 Albumin 4.5 g/dL (3.5-5.2) 11/18/24 09:22 Globulin 3.6 g/dL (1.3-4.6) 11/18/24 09:22 Lipase 20 U/L (13-60) 11/18/24 09:22 Urine Color Yellow (Yellow) 11/18/24 10:44 Urine Appearance Clear (CLEAR) 11/18/24 10:44 Urine pH 6.0 (5-7) 11/18/24 10:44 Ur Specific [place] 1.039 (1.005-1.030) H 11/18/24 10:44 Urine Protein 2+ (Negative) A 11/18/24 10:44 Urine Glucose (UA) Negative (Normal) 11/18/24 10:44 Urine Ketones Negative (Negative) 11/18/24 10:44 Urine Blood 2+ (Negative) A 11/18/24 10:44 Urine Nitrate Negative (Negative) 11/18/24 10:44 Urine Bilirubin Negative (Negative) 11/18/24 10:44 Urine Urobilinogen 1.0 mg/dL (Negative) 11/18/24 10:44 Ur Leukocyte Esterase 1+ (Negative) A 11/18/24 10:44 Urine RBC 21-50 /hpf (0-2) H 11/18/24 10:44 Urine WBC >100 /hpf (0-5) H 11/18/24 10:44 Ur Squamous Epith Cells 0-5 /hpf (0-5) 11/18/24 10:44 Amorphous Sediment Not Reportable 11/18/24 10:44 Urine Bacteria 1+ /hpf (NONE) H 11/18/24 10:44 Hyaline Casts 1.21 /lpf 11/18/24 10:44 All radiology interpretation(s) finalized by discharge Discharge Plan Discharge Condition: Stable Prescriptions: No Action (DME) pen needles See Rx Instructions .Route .MEDSUPPLY Qty: 100 3RF Rx Instructions: As directed omeprazole 20 mg capsule,delayed release(DR/EC) 20 mg PO QDAY Qty: 90 4RF amlodipine 10 mg tablet 10 mg PO DAILY Qty: 90 1RF rosuvastatin 40 mg tablet 40 mg PO DAILY Qty: 90 1RF allopurinol 300 mg tablet 150 mg PO DAILY Qty: 45 1RF losartan-hydrochlorothiazide 100-25 mg tablet 1 tab PO DAILY Qty: 90 1RF celecoxib 200 mg capsule 200 mg PO BID PRN (Reason: pain) Qty: 60 2RF gabapentin 100 mg capsule 100 mg PO TID Qty: 90 1RF Debrox 6.5 % drops 5 drp otic (ear) Q12H 7 Days Qty: 15 0RF cholecalciferol (vitamin D3) 1,250 mcg (50,000 unit) capsule 50,000 unit PO .qweekly 84 Days Qty: 12 0RF Ozempic 0.25 mg or 0.5 mg (2 mg/3 mL) pen injector 1 mg SUBCUT .qweekly 90 Days Qty: 3 2RF insulin glargine [Lantus Solostar U-100 Insulin] 100 unit/mL (3 mL) insulin pen 30 unit SUBCUT BID Qty: 15 5RF tramadol 50 mg tablet 50 mg PO Q12H PRN (Reason: pain) 30 Days Qty: 30 0RF potassium chloride PO albuterol sulfate 90 mcg/actuation HFA aerosol inhaler 2 puff inhalation Q6H PRN (Reason: shortness of breath or wheezing) Qty: 8.5 0RF (DME) Freestyle Jami III [place] See Rx Instructions .Route .MEDSUPPLY Qty: 1 0RF Rx Instructions: As directed (DME) FreeStyle Jami 3 Sensor Device See Rx Instructions .Route Qty: 1 6RF Rx Instructions: As directed torsemide 20 mg tablet 40 mg PO DAILY Qty: 10 0RF (DME) lancets [TRUEplus Lancets] 33 gauge misc See Rx Instructions .ROUTE .COMPLEX Qty: 100 11RF Dose Instruction: USE DIRECTED Rx Instructions: USE DIRECTED (DME) Test Strips See Rx Instructions .Route .MEDSUPPLY Qty: 1 0RF Rx Instructions: As directed fenofibrate nanocrystallized [Tricor] 145 mg tablet 145 mg PO QDAY 90 Days Qty: 90 1RF Referrals: Aleksander Morel MD [Primary Care Provider, Family Practice] Print Language: Thai Coding Level of Care Code ED Attending Psychiatrist for Mark Benitez
[2024-11-18 09:59] LABS: Hematocrit 44.6 % (37-53); Hemoglobin 15.10 g/dL (11.27-16.99); Mean Corpuscular HGB Conc 33.9 g/dL (30-55); Mean Corpuscular Hemoglobin 29.7 pg (27-33); Mean Corpuscular Volume 87.8 fl (82-101); Nucleated Red Blood Cells % 0 %; Platelet Count 222 10^3/cmm (157-399); Red Blood Count 5.08 10^6/uL (3.85-5.65); White Blood Count 18.77 10^3/uL (3.29-11.43)
[2024-11-18] MEDS: iohexol 350 mg/mL 500 mL Btl (per mL) IV (10:11)
[2024-11-18 10:14] LABS: Alanine Aminotransferase 28 U/L (0-41); Albumin Level 4.5 g/dL (3.5-5.2); Alkaline Phosphatase 51 U/L (40-130); Anion Gap 18.5 (5-19); Aspartate Amino Transferase 16 U/L (0-40); Blood Urea Nitrogen 15 mg/dL (8-23); Calcium 9.9 mg/dL (8.5-10.5); Carbon Dioxide 25 mmol/L (22-29); Chloride 95 mmol/L (98-107); Creatinine Clr Calc Pharmacy 61.4267; Globulin 3.6 g/dL (1.3-4.6); Glucose 145 mg/dL (65-115); Lipase 20 U/L (13-60); Osmolality Calculated 283 mOsm/kg (285-295); Potassium 3.5 mmol/L (3.5-5.1); Sodium 135 mmol/L (136-145); Total Protein 8.1 g/dL (6.6-8.7)
--- NOTE | 2024-11-18 10:38 | XRR_ITS ---
PROCEDURE INFORMATION: Exam: XR Chest Exam date and time: 11/18/2024 10:41 AM Age: 69 years old Clinical indication: Fever TECHNIQUE: Imaging protocol: Radiologic exam of the chest. Views: 1 view. Total images: 15 COMPARISON: CT abdomen pelvis w con* [id number] 11/18/2024 10:14 AM FINDINGS: Lungs: Unremarkable. No consolidation. Pleural spaces: Unremarkable. No pleural effusion. No pneumothorax. Heart/Mediastinum: Unremarkable. No cardiomegaly. Vasculature: Mild atherosclerotic disease burden is evident. Bones/joints: Unremarkable. XR/XR chest 1V portable [id number] IMPRESSION: No acute findings.
[2024-11-18] MEDS: piperacillin-tazobactam 3.375 GM in sodium chloride 0.9% (plus) 50 ML IV ×2 (10:39→17:25)
--- NOTE | 2024-11-18 10:43 | PC.NURSE ---
PATIENT PLACED ON 2 L NC DUE SLEEPING AND O2 SATURATION DECREASED TO 85%. PATIENT STATES WEARS CPAP AT NIGHT. DR COATS NOTIFIED.
[2024-11-18 11:07] LABS: Glucose Urine UA Negative (Normal); Nitrate Urine Negative (Negative)
[2024-11-18 11:08] LABS: Lactic Sepsis W/Reflex 1.2 mmol/L (0.5-2.2)
[2024-11-18] MEDS: VANCOMYCIN ADD-Vantage 1,000 MG in 0.9% NaCl ADD-Vantage 250 ML 250 MG IV (11:10)
[2024-11-18 11:11] LABS: Add Urine Microscopic? YES
[2024-11-18 11:16] LABS: Specific Gravity, Urine 1.039 (1.005-1.030)
--- NOTE | 2024-11-18 12:17 | PM.HP ---
Providers/Chief Complaint Primary Care Provider: Aleksander Morel MD Chief Complaint: Fever / urinary History of Present Illness Pako Ramirez is a 69 year old male with a past medical history of type 2 diabetes mellitus, hypertension, hyperlipidemia, who presents to [facility] due to weakness, fatigue, dysuria, increased urinary frequency, urinary hesitancy. Patient reports that recently he has been losing weight, he has been on Ozempic, going back to work, does report overnight increased urinary frequency, hesitancy, urgency, at times inability to urinate, reports that fevers, chills, no flank pain, no dysuria, no hematuria, no history of prostatomegaly, no history of BPH, he had a Virk catheter placed in the emergency room Review of Systems Const: Reports: fever(s) Card: Denies: chest pain Resp: Denies: dyspnea GI: Denies: abdominal pain Medications/Allergies Home Medications ?Medication ?Instructions ?Recorded ?Confirmed ?Last Taken ?Type potassium chloride PO 06/24/22 11/16/24 Unknown History albuterol sulfate 90 mcg/actuation 2 puff inhalation Q6H PRN 09/02/22 11/16/24 Unknown Rx aerosol inhaler shortness of breath or wheezing #8.5 grams Freestyle Jami III [place] #1 ea 03/07/23 11/16/24 Unknown Rx blood-glucose sensor (FreeStyle #1 ea 03/07/23 11/16/24 Unknown Rx Jami 3 Sensor device) pen needles #100 ea 02/22/24 11/16/24 Unknown Rx lancets 33 gauge (TRUEplus Lancets) #100 ea 02/27/24 11/16/24 Unknown Rx omeprazole 20 mg capsule,delayed 20 mg PO QDAY #90 caps 04/03/24 11/16/24 Unknown Rx release Test Strips #1 ea 04/18/24 11/16/24 Unknown Rx allopurinol 300 mg tablet 150 mg (1/2 x 300 mg) PO DAILY #45 05/29/24 11/16/24 Unknown Rx tabs amlodipine 10 mg tablet 10 mg PO DAILY #90 tabs 05/29/24 11/16/24 Unknown Rx losartan 100 1 tab PO DAILY #90 tabs 05/29/24 11/16/24 Unknown Rx mg-hydrochlorothiazide 25 mg tablet rosuvastatin 40 mg tablet 40 mg PO DAILY #90 tabs 05/29/24 11/16/24 Unknown Rx carbamide peroxide 6.5 % ear drops 5 drp otic (ear) Q12H 7 days #15 mL 08/23/24 11/16/24 Unknown Rx (Debrox) celecoxib 200 mg capsule 200 mg PO BID PRN pain #60 caps 08/23/24 11/16/24 Unknown Rx gabapentin 100 mg capsule 100 mg PO TID #90 caps 08/23/24 11/16/24 Unknown Rx cholecalciferol (vitamin D3) 1,250 50,000 unit PO .qweekly 12 weeks 08/24/24 11/16/24 Unknown Rx mcg (50,000 unit) capsule #12 caps torsemide 20 mg tablet 40 mg (2 x 20 mg) PO DAILY #10 tabs 09/05/24 11/16/24 Unknown Rx fenofibrate nanocrystallized 145 145 mg PO QDAY 90 days #90 tabs 09/12/24 11/16/24 Unknown Rx mg tablet (Tricor) insulin glargine 100 unit/mL (3 30 unit (0.3 mL) SUBCUT BID #15 mL 11/16/24 11/16/24 Unknown Rx mL) subcutaneous pen (Lantus Solostar U-100 Insulin) semaglutide 0.25 mg or 0.5 mg (2 1 mg (1.472 mL) SUBCUT .qweekly 3 11/16/24 11/16/24 Unknown Rx mg/3 mL) subcutaneous pen injector months #3 mL (Ozempic) tramadol 50 mg tablet 50 mg PO Q12H PRN pain 30 days #30 11/16/24 11/16/24 Unknown Rx tabs Allergies Allergy/AdvReac Type Severity Reaction Status Date / Time No Known Allergies Allergy Verified 11/16/24 13:38 PFSH Acute PFSH: Medical History Adult BMI 40.0-44.9 kg/sq m Hypovitaminosis D Morbid obesity with BMI of 45.0-49.9, adult Hypothyroidism (acquired) 12/29/2023 TSH 5.3 Left anterior shoulder pain Closed fracture of right distal radius GERD (gastroesophageal reflux disease) JESSICA (obstructive sleep apnea) Benign essential HTN Dyslipidemia Gout Surgical History No pertinent past surgical history Family History Other Cancer Stroke Social History Smoking and tobacco/nicotine status: never used tobacco/nicotine Quit status (tobacco/nicotine): has quit using Second hand smoke exposure: No Alcohol intake: current Alcohol intake frequency: holidays/special occasions only Alcohol type: beer, wine and hard liquor Substance/Drug Use: never Vitals/I&O/Wt Last Vital Signs Temp 99.2 F 11/18/24 11:09 Pulse 104 H 11/18/24 11:09 Resp 16 11/18/24 11:09 BP 116/70 11/18/24 11:09 Pulse Ox 94 11/18/24 11:09 O2 Del Method Nasal Cannula 11/18/24 11:09 O2 Flow Rate 2 11/18/24 11:09 11/17/24 11/18/24 11/18/24 22:59 06:59 14:59 Intake Total 1050 / 1050 Balance 1050 / 1050 Weight last 48 hrs Weight 125.191 kg Physical Exam Const: COMMON NORMALS: no acute distress and patient oriented x3 Eye: COMMON NORMALS: Equal, round and reactive pupils present Resp: COMMON NORMALS: normal respiratory effort, No retractions, No use of accessory muscles and clear to auscultation bilaterally AUSCULTATION: clear to auscultation bilaterally Cardio: COMMON NORMALS: no JVD, regular rate, regular rhythm, S1 normal heart sound present and S2 normal heart sound present RATE: regular rate RHYTHM: regular rhythm HEART SOUNDS: S1 normal heart sound present and S2 normal heart sound present GI: COMMON NORMALS: Normal to inspection, nondistended, normoactive bowel sounds present, Soft to palpation and non-tender Extremity: COMMON NORMALS: no pedal edema Neuro: COMMON NORMALS: patient oriented x3, CN's II-XII intact bilaterally and moves all extremities Psych: COMMON NORMALS: mental status grossly normal Data 11/18/24 09:22 11/18/24 09:22 Micro: Microbiology 11/18/24 10:31 Blood Culture - Preliminary Blood SPECIMEN COLLECTED 11/18/24 10:29 Blood Culture - Preliminary Blood SPECIMEN COLLECTED A&P Assessment and plan (1) UTI (urinary tract infection): (2) Sepsis: (3) Benign essential HTN: (4) Dyslipidemia: (5) DM II (diabetes mellitus, type II), controlled: (6) Hypothyroidism (acquired): (7) Morbid obesity with BMI of 45.0-49.9, adult: (8) Stage 3a chronic kidney disease (CKD): (9) JESSICA (obstructive sleep apnea): Plan Urinary tract infection - Urine culture - Blood cultures - Vancomycin - Zosyn -Status post sepsis bolus Type 2 diabetes mellitus - Lantus 5 units twice daily - Low-dose sliding scale Subclinical hypothyroidism Full code Lovenox for DVT prophylaxis PDMP PDMP Reviewed: Not Reviewed Attestations Medical Necessity Statement*: Patient requires hospitalization for urinary tract infection, sepsis, urinary retention, inpatient, greater than 2 midnights Diagnoses UTI (urinary tract infection) N39.0 Sepsis A41.9 Benign essential HTN I10 Dyslipidemia E78.5 Controlled type 2 diabetes mellitus with stage 3 chronic kidney disease, with long-term current use of insulin E11.22; N18.30; Z79.4 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 Diabetes mellitus complication status: with kidney complications Diabetes mellitus complication detail: with chronic kidney disease Chronic kidney disease stage: stage 3 (moderate) Hypothyroidism (acquired) E03.9 Morbid obesity with BMI of 45.0-49.9, adult E66.01; Z68.42 Stage 3a chronic kidney disease (CKD) N18.31 JESSICA (obstructive sleep apnea) G47.33 Sepsis Event Note Evaluation Current stage of sepsis: sepsis Possible source: genitourinary Focused Exam Vital Signs Temp Pulse Resp BP Pulse Ox O2 Del Method O2 Flow Rate 11/18/24 11:09 99.2 F 104 H 16 116/70 94 Nasal Cannula 2 11/18/24 10:42 104 H 16 116/74 92 Nasal Cannula 2 11/18/24 09:25 112 H 16 128/81 93 Room Air 11/18/24 08:42 101.4 F H 113 H 18 155/84 92 Room Air Respiratory exam: Absent respiratory distress Cardiovascular exam: Present S1 and S2 Capillary refill: < 3 Seconds Peripheral pulse strength: 2+ Slightly Diminished Peripheral pulse location: Radial Skin exam: normal turgor Date exam was performed: 11/18/24 Time exam was performed: 12:20
[2024-11-18 13:20] LABS: Free T4 Free Thyroxine 0.93 ng/dL (0.82-1.77)
[2024-11-18 13:22] LABS: NT Pro B Type Natriuretic Pept 86 pg/mL (0-125); Procalcitonin 0.19 ng/mL (0-0.5)
[2024-11-18 14:01] LABS: Thyroid Stimulating Hormone 2.33 uIU/mL (0.27-4.20)
[2024-11-18] MEDS: pantoprazole 40 mg SDV IVP (14:31)
--- NOTE | 2024-11-18 15:09 | PC.NURSE ---
DR SALTER CONTACTED IN REGARDS TO PATIENT VANC AND ZOSYN ORDERS. PROVIDER STATED TO CALL PHARMACY FOR RETIMES. NURSE CALLED PHARMACY, [facility], WHO RETIMED VANC AND ZOSYN TIMES.
--- NOTE | 2024-11-18 15:14 | PHA.VACGOAL ---
Vancomycin Goal - Goal Vancomycin Goal:: 15-20 mg/L Vancomycin Indication:: Other (UTI/SEPSIS) - Therapy Current therapy:: Pip/Tazo Day of therpy:: Day [1]of [] . Actual body weight (kg): 125.191 kg - Data Labs: WBC 18.77 10^3/uL (3.29-11.43) H 11/18/24 09:22 RBC 5.08 10^6/uL (3.85-5.65) 11/18/24 09:22 Hgb 15.10 g/dL (11.27-16.99) 11/18/24 09:22 Hct 44.6 % (37-53) 11/18/24 09:22 MCV 87.8 fl (82-101) 11/18/24 09:22 MCH 29.7 pg (27-33) 11/18/24 09:22 MCHC 33.9 g/dL (30-55) 11/18/24 09:22 RDW 12.5 % (12.1-15.1) 11/18/24 09:22 Sodium 135 mmol/L (136-145) L 11/18/24 09:22 Potassium 3.5 mmol/L (3.5-5.1) 11/18/24 09:22 Chloride 95 mmol/L (98-107) L 11/18/24 09:22 Carbon Dioxide 25 mmol/L (22-29) 11/18/24 09:22 Anion Gap 18.5 (5-19) 11/18/24 09:22 BUN 15 mg/dL (8-23) 11/18/24 09:22 Creatinine 1.4 mg/dL (0.7-1.2) H 11/18/24 09:22 GFR Calculation Not Reportable 11/18/24 09:22 Treatment plan:: new consult Regimen:: New start vancomycin for UTI/sepsis. No prior vancomycin history found. 1000 mg dose given in ER. Started on maintenance dose of 1500 mg q18h.
[2024-11-18] MEDS: insulin glargine 100 units/1 mL 5 UNIT SUBCUT (17:25)
[2024-11-19] VITALS: BP 122/72; PULSE 80; PULSE 96; RESP 10; RESP 17; TEMP 37.2; O2SAT 95; O2SAT 97
[2024-11-19] MEDS: piperacillin-tazobactam 3.375 GM in sodium chloride 0.9% (plus) 50 ML IV ×3 (01:14→17:30)
[2024-11-19 04:00] VITALS: BP 106/63; PULSE 79; PULSE 89; RESP 10; RESP 17; TEMP 36.7; O2SAT 93; O2SAT 98
[2024-11-19 06:18] LABS: Hematocrit 40.0 % (37-53); Hemoglobin 13.10 g/dL (11.27-16.99); Mean Corpuscular HGB Conc 32.8 g/dL (30-55); Mean Corpuscular Hemoglobin 29.0 pg (27-33); Mean Corpuscular Volume 88.5 fl (82-101); Nucleated Red Blood Cells % 0 %; Platelet Count 162 10^3/cmm (157-399); Red Blood Count 4.52 10^6/uL (3.85-5.65); White Blood Count 15.89 10^3/uL (3.29-11.43)
[2024-11-19 06:36] LABS: Anion Gap 17.6 (5-19); Blood Urea Nitrogen 17 mg/dL (8-23); Calcium 8.5 mg/dL (8.5-10.5); Carbon Dioxide 21 mmol/L (22-29); Chloride 105 mmol/L (98-107); Creatinine Clr Calc Pharmacy 57.6794; Glucose 129 mg/dL (65-115); Osmolality Calculated 293 mOsm/kg (285-295); Potassium 3.6 mmol/L (3.5-5.1); Sodium 140 mmol/L (136-145)
[2024-11-19 07:38] VITALS: BP 126/70; PULSE 88; RESP 16; TEMP 36.8; O2SAT 93
--- NOTE | 2024-11-19 08:08 | PC.SOCIAL ---
IMM Update Pg. 2 of IMM Updated and reviewed with patient, who verbalized understanding. Copy provided at bedside.
[2024-11-19] MEDS: insulin glargine 100 units/1 mL 5 UNIT SUBCUT ×2 (08:53→17:30)
[2024-11-19 11:14] VITALS: BP 119/60; PULSE 82; RESP 17; TEMP 37.1; O2SAT 90
[2024-11-19] MEDS: pantoprazole 40 mg SDV IVP (13:45)
[2024-11-19 15:34] VITALS: BP 124/70; PULSE 86; RESP 16; TEMP 36.9; O2SAT 95
--- NOTE | 2024-11-19 17:45 | PM.PN ---
Subjective Subjective: Patient was seen this morning, currently alert oriented x 3, following all commands, no fevers, chills, cough, Vitals/I&O/Wt Last Vital Signs Temp 98.4 F 11/19/24 15:34 Pulse 86 11/19/24 15:34 Resp 16 11/19/24 15:34 BP 124/70 11/19/24 15:34 Pulse Ox 95 11/19/24 15:34 O2 Del Method Room Air 11/19/24 15:34 O2 Flow Rate 2 11/18/24 14:36 FiO2 21 11/19/24 04:00 11/19/24 11/19/24 11/19/24 06:59 14:59 22:59 Intake Total 50 / 2700 950 / 950 Output Total 600 / 1500 750 / 750 Balance -550 / 1200 200 / 200 Weight last 48 hrs Weight 126.552 kg Weight 125.781 kg Weight 125.191 kg Physical Exam Const: COMMON NORMALS: no acute distress and patient oriented x3 Resp: COMMON NORMALS: normal respiratory effort, No retractions, No use of accessory muscles and clear to auscultation bilaterally AUSCULTATION: clear to auscultation bilaterally Cardio: COMMON NORMALS: regular rate, regular rhythm, S1 normal heart sound present and S2 normal heart sound present RATE: regular rate RHYTHM: regular rhythm HEART SOUNDS: S1 normal heart sound present and S2 normal heart sound present GI: COMMON NORMALS: Normal to inspection, nondistended, normoactive bowel sounds present and non-tender Extremity: COMMON NORMALS: no pedal edema Neuro: COMMON NORMALS: patient oriented x3 Psych: COMMON NORMALS: mental status grossly normal Data 11/19/24 05:15 11/19/24 05:15 Micro: Microbiology 11/18/24 10:44 Urine Culture - Preliminary Urine,Clean Catch Gram Negative Rods 11/18/24 10:31 Blood Culture - Preliminary Blood NEGATIVE TO DATE 11/18/24 10:29 Blood Culture - Preliminary Blood NEGATIVE TO DATE A&P Assessment and plan (1) UTI (urinary tract infection): (2) Sepsis: (3) Benign essential HTN: (4) Dyslipidemia: (5) DM II (diabetes mellitus, type II), controlled: (6) Hypothyroidism (acquired): (7) Morbid obesity with BMI of 45.0-49.9, adult: (8) Stage 3a chronic kidney disease (CKD): (9) JESSICA (obstructive sleep apnea): Plan Urinary tract infection CT/CT abdomen pelvis w con* [id number] IMPRESSION: 1. No renal, ureteral, nor bladder calculi detected. 2. A Virk catheter within collapsed urinary bladder. 3. Colonic diverticulosis is present without diverticulitis. - Urine culture showing gram-negative rods - Blood cultures - Vancomycin - Zosyn -Status post sepsis bolus Type 2 diabetes mellitus - Lantus 5 units twice daily - Low-dose sliding scale Subclinical hypothyroidism Full code Lovenox for DVT prophylaxis PDMP PDMP Reviewed: Not Reviewed Attestations Medical Necessity Statement*: Patient requires hospitalization for urinary retention, UTI, GOSIA Diagnoses UTI (urinary tract infection) N39.0 Sepsis A41.9 Benign essential HTN I10 Dyslipidemia E78.5 Controlled type 2 diabetes mellitus with stage 3 chronic kidney disease, with long-term current use of insulin E11.22; N18.30; Z79.4 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
[2024-11-19 19:32] VITALS: BP 143/79; PULSE 83; RESP 16; TEMP 37.2; O2SAT 94
[2024-11-20] VITALS (8 sets, daily range): BP systolic 104–146; BP diastolic 53–73; PULSE 71–90; RESP 16–20; TEMP 36.7; O2SAT 92–98
[2024-11-20] MEDS: piperacillin-tazobactam 3.375 GM in sodium chloride 0.9% (plus) 50 ML IV ×2 (00:41→07:39)
[2024-11-20 05:44] LABS: Hematocrit 38.5 % (37-53); Hemoglobin 12.90 g/dL (11.27-16.99); Mean Corpuscular HGB Conc 33.5 g/dL (30-55); Mean Corpuscular Hemoglobin 29.8 pg (27-33); Mean Corpuscular Volume 88.9 fl (82-101); Nucleated Red Blood Cells % 0 %; Platelet Count 162 10^3/cmm (157-399); Red Blood Count 4.33 10^6/uL (3.85-5.65); White Blood Count 10.20 10^3/uL (3.29-11.43)
[2024-11-20 06:07] LABS: Anion Gap 16.4 (5-19); Blood Urea Nitrogen 19 mg/dL (8-23); Calcium 8.6 mg/dL (8.5-10.5); Carbon Dioxide 23 mmol/L (22-29); Chloride 102 mmol/L (98-107); Creatinine Clr Calc Pharmacy 66.4196; Glucose 105 mg/dL (65-115); Osmolality Calculated 289 mOsm/kg (285-295); Potassium 3.4 mmol/L (3.5-5.1); Sodium 138 mmol/L (136-145)
[2024-11-20] MEDS: insulin glargine 100 units/1 mL 5 UNIT SUBCUT (07:39)
--- NOTE | 2024-11-20 11:43 | P.DS_ITS ---
Discharge Providers Date of Admission: 11/18/24 12:14 Date of Discharge: November 20, 2024 Attending Provider at Admission: Ruddy Torres MD Attending Provider at Discharge: Ruddy Torres MD Primary Care Provider: Aleksander Morel MD Diagnoses at Discharge Discharge Diagnosis (1) UTI (urinary tract infection): Status: Acute (2) Sepsis: Status: Acute (3) Benign essential HTN: Status: Chronic (4) Dyslipidemia: Status: Chronic (5) DM II (diabetes mellitus, type II), controlled: Status: Chronic (6) Hypothyroidism (acquired): Status: Chronic Permanent problem details: 12/29/2023 TSH 5.3 (7) Morbid obesity with BMI of 45.0-49.9, adult: Status: Acute (8) Stage 3a chronic kidney disease (CKD): Status: Acute (9) JESSICA (obstructive sleep apnea): Status: Acute Reason for Visit Reason for Visit: Fever / urinary Hospital Course Hospital Course Pako Ramirez is a 69 year old male with a past medical history of type 2 diabetes mellitus, hypertension, hyperlipidemia, who presents to [facility] due to weakness, fatigue, dysuria, increased urinary frequency, urinary hesitancy. Patient reports that recently he has been losing weight, he has been on Ozempic, going back to work, does report overnight increased urinary frequency, hesitancy, urgency, at times inability to urinate, reports that fevers, chills, no flank pain, no dysuria, no hematuria, no history of prostatomegaly, no history of BPH, he had a Land catheter placed in the emergency room Patient was admitted to [facility] for urinary tract infection, with sepsis secondary to urinary retention, BPH, received broad-spectrum antibiotic therapy, overall clinically improved with IV antibiotics, urine cultures growing E. coli, discharged on p.o. Levaquin for 6 remaining days For patient's urinary retention, likely secondary to BPH, he was discharged with Land catheter placed due to urinary retention. Follow-up with urology in [place] to [facility] for urodynamic testing and removal of Land catheter and 1 week. Patient was advised that if he develops any fevers, any chills, flank pain to me to go to the emergency room. For his type 2 diabetes mellitus, Lantus was decreased to 5 units twice daily, follow-up with primary care provider as outpatient Physical Exam Const: COMMON NORMALS: no acute distress and patient oriented x3 Resp: COMMON NORMALS: normal respiratory effort, No retractions, No use of accessory muscles and clear to auscultation bilaterally AUSCULTATION: clear to auscultation bilaterally Cardio: COMMON NORMALS: regular rate, regular rhythm, S1 normal heart sound present and S2 normal heart sound present RATE: regular rate RHYTHM: regular rhythm HEART SOUNDS: S1 normal heart sound present and S2 normal hea rt sound present GI: COMMON NORMALS: Normal to inspection, nondistended, normoactive bowel sounds present and non-tender Extremity: COMMON NORMALS: no pedal edema Neuro: COMMON NORMALS: patient oriented x3 Psych: COMMON NORMALS: mental status grossly normal Discharge Data Studies Completed and Pending Completed Studies During Hospitalization Category Date Time Status CT abdomen pelvis w con* [id number] Stat Cat Scan 11/18/24 08:54 Completed CXRP [XR chest 1V portable [id number]] Stat Exams 11/18/24 10:38 Completed Pending at discharge Category Date Time Status Basic Metabolic Panel AM LABS Lab 11/21/24 04:00 Ordered Blood Culture Stat Lab 11/18/24 10:31 Results Complete Blood Count w/Auto AM LABS Lab 11/21/24 04:00 Ordered Vancomycin Trough Timed Lab 11/20/24 19:00 Ordered Radiology Impressions Abdomen/Pelvis CT 11/18/24 08:54 IMPRESSION: 1. No renal, ureteral, nor bladder calculi detected. 2. A Land catheter within collapsed urinary bladder. 3. Colonic diverticulosis is present without diverticulitis. Chest X-Ray 11/18/24 10:38 IMPRESSION: No acute findings. Laboratory Results WBC 10.20 10^3/uL (3.29-11.43) 11/20/24 05:00 RBC 4.33 10^6/uL (3.85-5.65) 11/20/24 05:00 Hgb 12.90 g/dL (11.27-16.99) 11/20/24 05:00 Hct 38.5 % (37-53) 11/20/24 05:00 MCV 88.9 fl (82-101) 11/20/24 05:00 MCH 29.8 pg (27-33) 11/20/24 05:00 MCHC 33.5 g/dL (30-55) 11/20/24 05:00 RDW 12.7 % (12.1-15.1) 11/20/24 05:00 Plt Count 162 10^3/cmm (157-399) 11/20/24 05:00 MPV 12.6 fL (7.4-10.4) H 11/20/24 05:00 Neut % (Auto) 78.4 % 11/20/24 05:00 Lymph % (Auto) 10.3 % 11/20/24 05:00 [place] % (Auto) 10.0 % 11/20/24 05:00 Eos % (Auto) 0.7 % 11/20/24 05:00 Baso % (Auto) 0.2 % 11/20/24 05:00 Neut # (Auto) 8.00 10^3/uL (1.8-7.7) H 11/20/24 05:00 Lymph # (Auto) 1.1 10^3/uL (0.8-4.8) 11/20/24 05:00 [place] # (Auto) 1.0 10^3/uL (0.2-0.9) H 11/20/24 05:00 Eos # (Auto) 0.1 10^3/uL (0.0-0.8) 11/20/24 05:00 Baso # (Auto) 0.0 10^3/uL (0.0-0.1) 11/20/24 05:00 Nucleated RBC % (auto) 0 % 11/20/24 05:00 Nucleated RBCs # 0.0 /100WBC 11/20/24 05:00 Sodium 138 mmol/L (136-145) 11/20/24 05:00 Potassium 3.4 mmol/L (3.5-5.1) L 11/20/24 05:00 Chloride 102 mmol/L (98-107) 11/20/24 05:00 Carbon Dioxide 23 mmol/L (22-29) 11/20/24 05:00 Anion Gap 16.4 (5-19) 11/20/24 05:00 BUN 19 mg/dL (8-23) 11/20/24 05:00 Creatinine 1.3 mg/dL (0.7-1.2) H 11/20/24 05:00 GFR Calculation Not Reportable 11/20/24 05:00 Glucose 105 mg/dL (65-115) 11/20/24 05:00 POC Glucose 115 mg/dL (70-110) H 11/20/24 11:13 Calculated Osmolality 289 mOsm/kg (285-295) 11/20/24 05:00 Lactic Acid 1.2 mmol/L (0.5-2.2) 11/18/24 10:29 Calcium 8.6 mg/dL (8.5-10.5) 11/20/24 05:00 Total Bilirubin 1.0 mg/dL (0.15-1.2) 11/18/24 09:22 AST 16 U/L (0-40) 11/18/24 09:22 ALT 28 U/L (0-41) 11/18/24 09:22 Alkaline Phosphatase 51 U/L (40-130) 11/18/24 09:22 C-Reactive Protein 130.3 mg/L (0.0-4.9) H 11/18/24 09:22 NT-Pro-B Natriuret Pep 86 pg/mL (0-125) 11/18/24 09:22 Total Protein 8.1 g/dL (6.6-8.7) 11/18/24 09:22 Albumin 4.5 g/dL (3.5-5.2) 11/18/24 09:22 Globulin 3.6 g/dL (1.3-4.6) 11/18/24 09:22 Lipase 20 U/L (13-60) 11/18/24 09:22 Procalcitonin 0.19 ng/mL (0-0.5) 11/18/24 09:22 TSH 2.33 uIU/mL (0.27-4.20) 11/18/24 09:22 Free T4 0.93 ng/dL (0.82-1.77) 11/18/24 09:22 Free T3 2.5 PG/ML (2.0-4.4) 11/18/24 09:22 Urine Color Yellow (Yellow) 11/18/24 10:44 Urine Appearance Clear (CLEAR) 11/18/24 10:44 Urine pH 6.0 (5-7) 11/18/24 10:44 Ur Specific [place] 1.039 (1.005-1.030) H 11/18/24 10:44 Urine Protein 2+ (Negative) A 11/18/24 10:44 Urine Glucose (UA) Negative (Normal) 11/18/24 10:44 Urine Ketones Negative (Negative) 11/18/24 10:44 Urine Blood 2+ (Negative) A 11/18/24 10:44 Urine Nitrate Negative (Negative) 11/18/24 10:44 Urine Bilirubin Negative (Negative) 11/18/24 10:44 Urine Urobilinogen 1.0 mg/dL (Negative) 11/18/24 10:44 Ur Leukocyte Esterase 1+ (Negative) A 11/18/24 10:44 Urine RBC 21-50 /hpf (0-2) H 11/18/24 10:44 Urine WBC >100 /hpf (0-5) H 11/18/24 10:44 Ur Squamous Epith Cells 0-5 /hpf (0-5) 11/18/24 10:44 Amorphous Sediment Not Reportable 11/18/24 10:44 Urine Bacteria 1+ /hpf (NONE) H 11/18/24 10:44 Hyaline Casts 1.21 /lpf 11/18/24 10:44 Vitals Last Vital Signs Temp 98.0 F 11/20/24 11:28 Pulse 72 11/20/24 11:28 Resp 17 11/20/24 11:28 BP 121/73 11/20/24 11:28 Pulse Ox 94 11/20/24 11:28 O2 Del Method Room Air 11/20/24 11:28 O2 Flow Rate 2 11/18/24 14:36 FiO2 21 11/20/24 04:20 Discharge Plan Discharge Patient Disposition: Home Condition: Stable Prescriptions: New tamsulosin [Flomax] 0.4 mg capsule 0.4 mg PO DAILY 30 Days Qty: 30 0RF levofloxacin 750 mg tablet 750 mg PO DAILY 6 Days Qty: 6 0RF Rx Instructions: start 11/21/2024 Continued (DME) pen needles See Rx Instructions .Route .MEDSUPPLY Qty: 100 3RF Rx Instructions: As directed omeprazole 20 mg capsule,delayed release(DR/EC) 20 mg PO QDAY Qty: 90 4RF amlodipine 10 mg tablet 10 mg PO DAILY Qty: 90 1RF rosuvastatin 40 mg tablet 40 mg PO DAILY Qty: 90 1RF allopurinol 300 mg tablet 150 mg PO DAILY Qty: 45 1RF gabapentin 100 mg capsule 100 mg PO TID Qty: 90 1RF Debrox 6.5 % drops 5 drp otic (ear) Q12H 7 Days Qty: 15 0RF cholecalciferol (vitamin D3) 1,250 mcg (50,000 unit) capsule 50,000 unit PO .qweekly 84 Days Qty: 12 0RF tramadol 50 mg tablet 50 mg PO Q12H PRN (Reason: pain) 30 Days Qty: 30 0RF (DME) Freestyle Jami III [place] See Rx Instructions .Route .MEDSUPPLY Qty: 1 0RF Rx Instructions: As directed (DME) FreeStyle Jami 3 Sensor Device See Rx Instructions .Route Qty: 1 6RF Rx Instructions: As directed (DME) lancets [TRUEplus Lancets] 33 gauge misc See Rx Instructions .ROUTE .COMPLEX Qty: 100 11RF Dose Instruction: USE DIRECTED Rx Instructions: USE DIRECTED (DME) Test Strips See Rx Instructions .Route .MEDSUPPLY Qty: 1 0RF Rx Instructions: As directed fenofibrate nanocrystallized [Tricor] 145 mg tablet 145 mg PO QDAY 90 Days Qty: 90 1RF potassium chloride 10 mEq Tablet Extended Release 10 meq PO DAILY Changed insulin glargine [Lantus Solostar U-100 Insulin] 100 unit/mL (3 mL) insulin pen 5 unit SUBCUT BID Qty: 15 5RF Held losartan-hydrochlorothiazide 100-25 mg tablet 1 tab PO DAILY Qty: 90 1RF Hold Instructions: Resume on 12/25/24. Hold until you see your primary care provider Ozempic 0.25 mg or 0.5 mg (2 mg/3 mL) pen injector 1 mg SUBCUT .qweekly 90 Days Qty: 3 2RF Hold Instructions: Resume on 12/25/24. Hold until you see your primary care provider Discontinued celecoxib 200 mg capsule 200 mg PO BID PRN (Reason: pain) Qty: 60 2RF Discharge Orders: Discharge Order (Routine); Ordered 11/20/24 Ordered By: Ruddy Torres Referrals: Emir Tena MD [Referring, Urology] - 7-10 days Referral Note: urinary retention, bph, land in place Aleksander Morel MD [Primary Care Provider, Family Practice] - 1-3 days Discharge Diet: Cardiac Discharge Activity: Resume usual activity Patient Instructions: Opioid Safety, Patient Portal & Iggy Instructions Activity Restrictions/Additional Instructions: - Your Land catheter is in place, follow-up with urology for urodynamic testing and removal of Land catheter in 1 to 2 weeks - Follow-up with urology in [place] - Please take antibiotics as prescribed for UTI - If you have any fevers, chills please go to emergency room - For your type 2 diabetes I would hold Ozempic for now - For your hypertension hold losartan/hydrochlorothiazide due to soft blood pressures, resume once you follow-up with primary care provider - I have decreased your glargine to 5 units twice daily, monitor blood sugars closely -Please monitor your blood sugars closely -Monitor your blood sugars 3 times daily as after meals -If your blood sugar is greater than 500 go to the emergency room -If your blood sugar is less than 60 or at anytime you feel lightheaded or dizzy or diaphoretic or have chest palpitations check your blood sugar, and eat a hard candy or drink orange juice and go immediately to the emergency room -Remember hypoglycemia kills, so if his blood sugar is less than 60 we have to increase it by taking in a sugary meal such as a hard candy or orange juice and go to the emergency room -If you have any questions please call us where here to help Discharge Attestations Time Spent in Discharge Care*: greater than 30 min Quality Metrics Clinical Quality Measures [ No reported AMI, CVA or VTE this stay] Coding Level of Care Code 81799 Total time (in minutes) for Discharge: 45 Diagnoses UTI (urinary tract infection) N39.0 Sepsis A41.9 Benign essential HTN I10 Dyslipidemia E78.5 DM II (diabetes mellitus, type II), controlled E11.9 Hypothyroidism (acquired) E03.9 Morbid obesity with BMI of 45.0-49.9, adult E66.01; Z68.42 Stage 3a chronic kidney disease (CKD) N18.31 JESSICA (obstructive sleep apnea) G47.33
--- NOTE | 2024-11-20 12:47 | PC.NURSE ---
Pt discharging closer to 1500 per .
== END 2024-11-20 15:52 | disposition home or self-care (01) | DRG 872 ==
LOC: ER 10:16 → MEDSURG 14:40
PROVIDERS: Admitting Provider Family Medicine; Emergency Provider Emergency Medicine; PCP Family Medicine; Visit Provider Family Medicine
DX: A41.9 Sepsis, unspecified organism (principal); Z68.41 Body mass index [BMI] 40.0-44.9, adult; N17.9 Acute kidney failure, unspecified; I12.9 Hypertensive chronic kidney disease with stage 1 through stage 4 chronic kidney disease, or unspecified chronic kidney disease; E11.22 Type 2 diabetes mellitus with diabetic chronic kidney disease; N18.30 Chronic kidney disease, stage 3 unspecified; E78.5 Hyperlipidemia, unspecified; E03.9 Hypothyroidism, unspecified; E66.01 Morbid (severe) obesity due to excess calories; G47.33 Obstructive sleep apnea (adult) (pediatric); N40.1 Benign prostatic hyperplasia with lower urinary tract symptoms; R33.8 Other retention of urine; M10.9 Gout, unspecified; K21.9 Gastro-esophageal reflux disease without esophagitis; Z79.4 Long term (current) use of insulin; Z79.85 Long-term (current) use of injectable non-insulin antidiabetic drugs
CPT/HCPCS: 36415; 36416; 71045; 74177; 80048; 80053; 81001; 82962; 83605; 83690; 83880; 84145; 84439; 84443; 84481; 85025; 86140; 87040; 87077; 87086; 87186; 94660; 94664; 96365; 96367; 96372; 99285; J1650; J1815; J2470; J2543; J3370; J7030; J7050; J9999

== ENCOUNTER → 2024-12-26 09:46 | Outpatient (BNVA) | payer MEDICARE, SELFPAY | PROVIDERS: PCP Family Medicine; Visit Provider Nurse Practitioner | DX: M17.11 Unilateral primary osteoarthritis, right knee (principal); M22.2X1 Patellofemoral disorders, right knee; G89.29 Other chronic pain | CPT/HCPCS: 73560; 73565 ==

== ENCOUNTER 2024-12-26 11:43 | Outpatient (CLI) | payer MEDICARE, SELFPAY | END 2024-12-26 11:44 | disposition home or self-care (01) | LOC: SPT 11:45 | PROVIDERS: PCP Family Medicine; Visit Provider Nurse Practitioner | DX: Z46.89 Encounter for fitting and adjustment of other specified devices (principal); M25.561 Pain in right knee | CPT/HCPCS: 20610; J1100; J2795; J3301; J9999; L1812 ==

== ENCOUNTER → 2025-01-10 10:27 | Outpatient (BNVA) | payer MEDICARE, SELFPAY | PROVIDERS: PCP Family Medicine; Visit Provider Family Medicine | DX: E11.22 Type 2 diabetes mellitus with diabetic chronic kidney disease (principal); N18.30 Chronic kidney disease, stage 3 unspecified; Z79.4 Long term (current) use of insulin | CPT/HCPCS: 80053; 83036; 84439; 84443 ==

== ENCOUNTER → 2025-03-29 09:57 | Outpatient (BNVA) | payer MEDICARE, SELFPAY | PROVIDERS: PCP Family Medicine; Visit Provider Nurse Practitioner | DX: L73.8 Other specified follicular disorders (principal); L72.0 Epidermal cyst; L85.8 Other specified epidermal thickening; L81.4 Other melanin hyperpigmentation; L82.1 Other seborrheic keratosis; L91.8 Other hypertrophic disorders of the skin; Z78.9 Other specified health status; R58 Hemorrhage, not elsewhere classified; L53.8 Other specified erythematous conditions; L29.89 Other pruritus; R20.8 Other disturbances of skin sensation; M17.11 Unilateral primary osteoarthritis, right knee; M22.2X1 Patellofemoral disorders, right knee | CPT/HCPCS: 17110; 20610; 99213; J1100; J2795; J3301; J9999 ==

== ENCOUNTER → 2025-04-11 10:47 | Outpatient (BNVA) | payer MEDICARE, SELFPAY | PROVIDERS: PCP Family Medicine; Visit Provider Family Medicine | DX: E11.22 Type 2 diabetes mellitus with diabetic chronic kidney disease (principal); N18.30 Chronic kidney disease, stage 3 unspecified; Z79.4 Long term (current) use of insulin; E03.9 Hypothyroidism, unspecified | CPT/HCPCS: 80053; 83036; 84439; 84443 ==